=== PATIENT | male | born 1960 | race Caucasian/White ===

== ENCOUNTER 2020-12-01 14:29 | Emergency (ER) | payer BC ==
[~2020-12-01] VITALS: Ht 177.8 cm; Wt 113.4 kg
[2020-12-01 14:31] VITALS: BP 171/96
[2020-12-01] MEDS ORDERED: NOHOMEMEDICATIONS (14:38)
[2020-12-01] MEDS ORDERED: AUGMENTIN 875-1 EACH PO (17:43)
[2020-12-01] MEDS ORDERED: ULTRAM 50MG TAB50 MG PO (17:50)
== END 2020-12-01 17:45 | disposition home or self-care (01) ==
LOC: ER 14:29
DX: S61.011A Laceration without foreign body of right thumb without damage to nail, initial encounter (principal); W54.0XXA Bitten by dog, initial encounter; Y93.89 Activity, other specified; Y92.89 Other specified places as the place of occurrence of the external cause; Y99.8 Other external cause status